=== PATIENT | female | born 1975 | race Caucasian/White ===

== ENCOUNTER 2016-10-10 20:23 | Emergency (ER) | payer OTHER ==
[~2016-10-10] VITALS: Ht 160 cm; Wt 76.0 kg
[~2016-10-10 20:23] MED LIST: LISI-586 PO; SUCR1TAB PO; ZANT150T2 PO; ZOFR4TAB3 SL
[2016-10-10 20:30] VITALS: BP 194/109; PULSE 77; RESP 18; TEMP 99; O2SAT 100
[2016-10-10] MEDS ORDERED: SODIUM CHLOR 0.9% 1000 ML INJ 1,000 ML IV SCH (21:35)
[2016-10-10] MEDS ORDERED: MORPHINE SULFATE 4 MG/ML INJ IV PUSH ONE ×2 (21:45→23:45)
[2016-10-10] MEDS ORDERED: ALUMINUM/MAGNESIUM/SIMETH 30 ML CUP PO ONE (21:45)
[2016-10-10] MEDS ORDERED: PANTOPRAZOLE SODIUM 40 MG VIAL IVP ONE (21:45)
[2016-10-10] MEDS ORDERED: ONDANSETRON HCL 4 MG/2 ML VIAL IVP ONE (21:45)
[2016-10-10] MEDS ORDERED: LIDOCAINE VISCOUS 2% SOLN 15 ML UDC PO ONE (21:45)
[2016-10-10 22:08] LABS: AUTOMATED NEUTROPHIL # 3.4 TH/MM3 (1.8-7.7); BASOPHIL % 0.5 % (0.0-2.0); EOSINOPHIL % 0.7 % (0.0-4.0); HEMATOCRIT 33.4 % (35.0-46.0); LYMPH % 16.1 % (9.0-44.0); LYMPHOCYTE # 0.7 TH/MM3 (1.0-4.8); MEAN CELL VOLUME 72.6 FL (80.0-100.0); MEAN CORPUSCULAR HGB CONC 31.8 % (32.0-36.0); NEUT % 71.7 % (16.0-70.0); PLATELET COUNT 375 TH/MM3 (150-450); RED CELL DISTRIBUTION WIDTH 19.5 % (11.6-17.2); WHITE BLOOD COUNT 4.6 TH/MM3 (4.0-11.0)
[2016-10-10 22:10] LABS: GLUCOSE,URINE NEG (NEG); KETONE, URINE 40 mg/dL (NEG); NITRITE,URINE NEG (NEG)
[2016-10-10] MEDS: SODIUM CHLORIDE 0.9% FLUSH 10 ML FLUSH IV FLUSH PRN ×2 (22:11→23:48)
[2016-10-10 22:19] LABS: HEMO FLAGS AUTO DIFF
[2016-10-10 22:21] LABS: BICARBONATE 26.9 MEQ/L (21.0-32.0)
[2016-10-10 22:24] LABS: APTT (PATIENT) 25.7 SEC (24.3-30.1); INTERNATIONAL NORMALIZED RATIO 0.9 RATIO; PROTHROMBIN TIME - PATIENT 10.4 SEC (9.8-11.6)
[2016-10-10 22:35] VITALS: BP 148/95; PULSE 72; RESP 20; O2SAT 98
[2016-10-10 22:38] LABS: BLOOD, URINE MOD (NEG)
[2016-10-10 22:39] LABS: URINE COLOR YELLOW (YELLW/STRAW)
[2016-10-10 22:40] LABS: WBC, URINE 0-2 /hpf (0-5)
[2016-10-10 22:41] LABS: COMMENT (UR) CULT NOT INDICATED; CULTURE IF INDICATED CULT NOT INDICATED; RBC, URINE 0-3 /hpf (0-3); SQUAMOUS EPITHELIAL CELL URINE 0-5 /hpf (0-5)
[2016-10-10] MEDS ORDERED: ACETAMINOPHEN/HYDROcodone 325 MG/5 MG TAB PO ONE (22:45)
[2016-10-10 22:52] LABS: OVALOCYTES 1+ (NORMAL); TARGET CELLS 1+ (NORMAL)
[2016-10-10 22:53] LABS: KERATOCYTES 1+ (NORMAL); SCAN/DIFF AUTO DIFF CONFIRMED
--- NOTE | 2016-10-10 23:48 | PD ---
HPI Chief Complaint: GI Complaint Time Seen by Provider: 21:24 Travel History International Travel<30 days: No Contact w/Intl Traveler<30days: No Traveled to known affect area: No History of Present Illness HPI Patient is a 41 year old female with history of gastric bypass surgery and severe gastritis, who comes in complaining of gastritis pain. She has been here multiple times for the same thing and says she has been following with GI who has not been able to find anything wrong. She takes Zantac, Zofran, Lortab , and now Xanax, without relief of her symptoms. She says the symptoms have been going on since Monday. She says that her symptoms are similar to past symptoms. She says she is currently on an antibiotic for a UTI ( she does not know which one). PFSH Past Medical History Anxiety: Yes Depression: Yes Cancer: No Cardiovascular Problems: Yes (BP) Diabetes: No Diminished Hearing: No Gastrointestinal Disorders: Yes (GASTRITIS) GERD: Yes Glaucoma: No Hepatitis: No Hiatal Hernia: No Hypertension: Yes Musculoskeletal: Yes (SCIATICA) Respiratory: No Immunizations Current: Yes Thyroid Disease: No PNEUMOCCOCAL Vaccine (Year): 2 ?: Not : 2 Para: 2 Tubal Ligation: Yes Past Surgical History Abdominal Surgery: Yes (GASTRIC BYPASS 2009) Cardiac Surgery: No Endocrine Surgery: No Gynecologic Surgery: Yes Neurologic Surgery: No Pacemaker: No Thoracic Surgery: No Tonsillectomy: Yes Other Surgery: Yes (CARPAL TUNNEL REPAIR, bilateral) Social History Alcohol Use: Yes (DAILY) Tobacco Use: No (QUIT 2005) Substance Use: No Allergies-Medications (Allergen,Severity, Reaction): Coded Allergies: No Known Allergies (Verified , 10/10/16) Reported Meds & Prescriptions Reported Meds & Active Scripts Active Sucralfate 1 Gm Tab 1 Gm PO QID 30 Days Zofran ODT (Ondansetron HCl) 4 Mg Tab 4 Mg SL Q6H PRN FOR NAUSEA/VOMITING Reported Zantac (Ranitidine HCl) 150 Mg Tab 150 Mg PO BID Zestoretic 20/12.5 (Lisinopril/Hctz 20 mg/12.5 mg) 20 Mg/12.5 Mg Tab 1 Tab PO DAILY Review of Systems Except as stated in HPI: all other systems reviewed are Neg General / Constitutional: No: Fever, Chills HENT: No: Headaches Cardiovascular: No: Chest Pain or Discomfort Respiratory: No: Shortness of Breath Gastrointestinal: Positive: Nausea, Vomiting, Abdominal Pain Genitourinary: Positive: Dysuria Musculoskeletal: No: Edema, Pain Skin: No Rash, No Change in Pigmentation Physical Exam Narrative GENERAL: Awake and alert, in mild distress due to pain. SKIN: Focused skin assessment warm/dry. HEAD: Atraumatic. Normocephalic. EYES: Pupils equal and round. No scleral icterus. ENT: Mucous membranes pink and moist. NECK: Trachea midline. No JVD. CARDIOVASCULAR: Regular rate and rhythm. No murmur appreciated. RESPIRATORY: No accessory muscle use. Clear to auscultation. Breath sounds equal bilaterally. GASTROINTESTINAL: Abdomen soft, nondistended. tender to palpation of epigastric area, no rebound or guarding. MUSCULOSKELETAL: No obvious deformities. No clubbing. No cyanosis. No edema. NEUROLOGICAL: Awake and alert. No obvious cranial nerve deficits. Motor grossly within normal limits. Normal speech. PSYCHIATRIC: Appropriate mood and affect; insight and judgment normal. Data Data Last Documented VS Vital Signs Date Time Temp Pulse Resp B/P Pulse Ox O2 Delivery O2 Flow Rate FiO2 10/11/16 00:31 69 18 159/92 98 Room Air 10/10/16 20:30 99.0 Orders Basic Metabolic Panel (Bmp) (10/10/16 21:35) Complete Blood Count With Diff (10/10/16 21:35) Lipase (10/10/16 21:35) Prothrombin Time / Inr (Pt) (10/10/16 21:35) Act Partial Throm Time (Ptt) (10/10/16 21:35) Urinalysis - C+S If Indicated (10/10/16 21:35) Ua Includes Microscopic (10/10/16 21:35) Iv Access Insert/Monitor (10/10/16 21:35) Ecg Monitoring (10/10/16 21:35) Oximetry (10/10/16 21:35) Morphine Inj (Morphine Inj) (10/10/16 21:45) Ondansetron Inj (Zofran Inj) (10/10/16 21:45) Pantoprazole Inj (Protonix Inj) (10/10/16 21:45) Sodium Chlor 0.9% 1000 Ml Inj (Ns 1000 M (10/10/16 21:35) Sodium Chloride 0.9% Flush (Ns Flush) (10/10/16 21:45) Al-Mag Hy-Si 40-40-4 Mg/Ml Liq (Mag-Al P (10/10/16 21:45) Lidocaine 2% Viscous (Xylocaine 2% Visco (10/10/16 21:45) Ed Urine Pregnancytest Poc (10/10/16 21:35) Acetamin-Hydrocod 325-5 Mg ([place] 5-325 (10/10/16 22:45) Ct Abd/Pel W Iv Contrast(Rout) (10/10/16 ) Morphine Inj (Morphine Inj) (10/10/16 23:45) Iohexol 350 Inj (Omnipaque 350 Inj) (10/10/16 23:55) Labs Laboratory Tests Test 10/10/16 21:57 White Blood Count 4.6 TH/MM3 Red Blood Count 4.60 MIL/MM3 Hemoglobin 10.6 GM/DL Hematocrit 33.4 % Mean Corpuscular Volume 72.6 FL Mean Corpuscular Hemoglobin 23.0 PG Mean Corpuscular Hemoglobin 31.8 % Concent Red Cell Distribution Width 19.5 % Platelet Count 375 TH/MM3 Mean Platelet Volume 7.1 FL Neutrophils (%) (Auto) 71.7 % Lymphocytes (%) (Auto) 16.1 % Monocytes (%) (Auto) 11.0 % Eosinophils (%) (Auto) 0.7 % Basophils (%) (Auto) 0.5 % Neutrophils # (Auto) 3.4 TH/MM3 Lymphocytes # (Auto) 0.7 TH/MM3 Monocytes # (Auto) 0.5 TH/MM3 Eosinophils # (Auto) 0.0 TH/MM3 Basophils # (Auto) 0.0 TH/MM3 CBC Comment AUTO DIFF Differential Comment AUTO DIFF CONFIRMED Target Cells 1+ Ovalocytes 1+ Keratocytes 1+ Prothrombin Time 10.4 SEC Prothromb Time International 0.9 RATIO Ratio Activated Partial 25.7 SEC Thromboplast Time Urine Color YELLOW Urine Turbidity CLEAR Urine pH 6.0 Urine Specific [place] 1.029 Urine Protein 30 mg/dL Urine Glucose (UA) NEG mg/dL Urine Ketones 40 mg/dL Urine Occult Blood MOD Urine Nitrite NEG Urine Bilirubin NEG Urine Leukocyte Esterase NEG Urine RBC 0-3 /hpf Urine WBC 0-2 /hpf Urine Squamous Epithelial 0-5 /hpf Cells Microscopic Urinalysis Comment CULT NOT INDICATED Sodium Level 136 MEQ/L Potassium Level 3.0 MEQ/L Chloride Level 98 MEQ/L Carbon Dioxide Level 26.9 MEQ/L Anion Gap 11 MEQ/L Blood Urea Nitrogen 9 MG/DL Creatinine 0.79 MG/DL Estimat Glomerular Filtration 79 ML/MIN Rate Random Glucose 117 MG/DL Calcium Level 9.5 MG/DL Lipase 210 U/L MDM Medical Decision Making Medical Screen Exam Complete: Yes Emergency Medical Condition: Yes Medical Record Reviewed: Yes Differential Diagnosis gastritis vs obstruction vs pancreatitis Narrative Course Patient is a 40-year-old female with extensive history of gastritis, who comes in complaining of gastritis pain. Exam shows epigastric tenderness. IV established, labs sent. Labs show no acute abnormalities. Given IV fluids, GI cocktail, morphine. Patient states she is still having a lot of pain. Given second dose of morphine. CT abdomen and pelvis performed. CT shows no acute abnormalities. Patient reports she is feeling better after the second dose of morphine. Will be discharged home. Advised follow-up with her doctors. Advised to return to the ED as needed for any worsening symptoms. Diagnosis Primary Impression: Gastritis Qualified Code: K29.00 - Acute gastritis without hemorrhage, unspecified gastritis type Patient Instructions: Gastritis (ED), General Instructions Additional Instructions: Follow up with your doctors. Return to the ED as needed for any worsening symptoms. Disposition: 01 DISCHARGE HOME Condition: Stable Myrna Hernandes MD Oct 10, 2016 23:48
[2016-10-10] MEDS ORDERED: IOHEXOL 350 MG/ML 10 ML VIAL (for RAD DIAG) IV ONE (23:55)
--- NOTE | 2016-10-11 00:23 | RADHPO ---
EXAM DATE/TIME: 10/10/2016 23:52 [facility] COMPARISON: CT ABDOMEN & PELVIS W CONTRAST, June 17, 2015, 3:51. INDICATIONS : Right lower quadrant pain. IV CONTRAST: 75 cc Omnipaque 350 (iohexol) IV ORAL CONTRAST: No oral contrast ingested. RADIATION DOSE: 10.50 CTDIvol (mGy) MEDICAL HISTORY : Gastroesophageal reflux disease. Hypertension. SURGICAL HISTORY : Gastric bypass. Tubal ligation. ENCOUNTER: Initial ACUITY: 1 day PAIN SCALE: 7/10 LOCATION: Right lower quadrant TECHNIQUE: Volumetric scanning of the abdomen and pelvis was performed. Using automated exposure control and ad justment of the mA and/or kV according to patient size, radiation dose was kept as low as reasonably achievable to obtain optimal diagnostic quality images. FINDINGS: LOWER LUNGS: The visualized lower lungs are clear. LIVER: Homogeneous density without lesion. There is no dilation of the biliary tree. There has been interva l cholecystectomy. SPLEEN: Normal size without lesion. PANCREAS: Within normal limits. KIDNEYS: Normal in size and shape. There is no mass, stone or hydronephrosis. ADRENAL GLANDS: Within normal limits. VASCULAR: There is no aortic aneurysm. BOWEL/MESENTERY: Post gastric bypass surgery. The stomach, small bowel, and colon demonstrate no acute abnormality. T here is no free intraperitoneal air or fluid. ABDOMINAL WALL: Within normal limits. RETROPERITONEUM: There is no lymphadenopathy. BLADDER: No wall thickening or mass. REPRODUCTIVE: Within normal limits. INGUINAL: There is no lymphadenopathy or hernia. MUSCULOSKELETAL: Within normal limits for patient age. CONCLUSION: 1. No acute abnormality. 2. Interval cholecystectomy. 3. Prior gastric bypass. Naif Yadav Jr., MD on October 11, 2016 at 0:17 Board Certified Radiologist. This report was verified electronically.
[2016-10-11 00:31] VITALS: BP 159/92; PULSE 69; RESP 18; O2SAT 98
[2016-10-11 00:57] VITALS: BP 122/74; PULSE 69; RESP 16; O2SAT 98
== END 2016-10-11 01:05 | disposition home or self-care (01) ==
LOC: PHED 20:23
DX: K29.00 Acute gastritis without bleeding (principal); R30.0 Dysuria; F41.9 Anxiety disorder, unspecified; F32.9 Major depressive disorder, single episode, unspecified; K21.9 Gastro-esophageal reflux disease without esophagitis; I10 Essential (primary) hypertension; Z87.891 Personal history of nicotine dependence
CPT/HCPCS: 74177; 80048; 81001; 83690; 84703; 85025; 85610; 85730; 96361; 96374; 96375; 96376; 99284; C9113; J2270; J2405; J7030; Q9967

== ENCOUNTER 2016-11-29 23:39 | Emergency (ER) | payer OTHER ==
[~2016-11-29] VITALS: Ht 160 cm; Wt 71.2 kg
[2016-11-29 23:42] VITALS: BP 167/101; PULSE 75; RESP 16; TEMP 97.9; O2SAT 99
[2016-11-29 23:55] VITALS: BP 167/101; PULSE 75; RESP 18; TEMP 97.9; O2SAT 99
[2016-11-30] MEDS ORDERED: SODIUM CHLOR 0.9% 1000 ML INJ 1,000 ML IV SCH (00:03)
[2016-11-30] MEDS ORDERED: ZANT150T2 PO (00:09)
[2016-11-30] MEDS ORDERED: HYDR-4107 PO (00:09)
[2016-11-30] MEDS ORDERED: HYDR-3580 PO (00:09)
[2016-11-30] MEDS ORDERED: BUPR75TA PO (00:09)
[2016-11-30] MEDS ORDERED: LISI20TA PO (00:09)
[2016-11-30] MEDS ORDERED: RANI150C PO (00:09)
[2016-11-30] MEDS ORDERED: MORPHINE SULFATE 4 MG/ML INJ IV PUSH ONE (00:15)
[2016-11-30] MEDS ORDERED: ONDANSETRON HCL 4 MG/2 ML VIAL IVP ONE (00:15)
[2016-11-30] MEDS ORDERED: SODIUM CHLORIDE 0.9% FLUSH 10 ML FLUSH IV FLUSH PRN (00:15)
--- NOTE | 2016-11-30 00:20 | PD ---
HPI Chief Complaint: Abdominal Pain Time Seen by Provider: 23:55 Travel History International Travel<30 days: No Contact w/Intl Traveler<30days: No Traveled to known affect area: No History of Present Illness HPI 41yo F with PMH of chronic back pain on hydrocodone from pain management, chronic abdominal pain presents to the ED with c/o abdominal pain. Pt states it is now right sided, upper and lower and radiates to right back. +NBNB vomiting. States this episode has been going on for 2 weeks but worst today. Denies any fever, trauma, focal weakness or numbness, chest pain, sob, dysuria, hematuria, vaginal discharge. Pt is on her menstrual period. Pt has seen GI and had endoscopy 2 months ago that was normal. States she has scheduled colonoscopy. Pt was here for similar abdominal pain last month. States she has had this pain for 2 years and it flares up every so often. PSH include gastric bypass and cholecystectomy. PFSH Past Medical History Anxiety: Yes Depression: Yes Cancer: No Cardiovascular Problems: Yes Diabetes: No Diminished Hearing: No Gastrointestinal Disorders: Yes (GASTRITIS) GERD: Yes Glaucoma: No Hepatitis: No Hiatal Hernia: No Hypertension: Yes Musculoskeletal: Yes (SCIATICA) Respiratory: No Immunizations Current: Yes Thyroid Disease: No Tetanus Vaccination: < 5 Years Influenza Vaccination: Yes PNEUMOCCOCAL Vaccine (Year): 2 ?: Not LMP: NOW : 2 Para: 2 Tubal Ligation: Yes Past Surgical History Abdominal Surgery: Yes (GASTRIC BYPASS 2009) Cardiac Surgery: No Endocrine Surgery: No Gynecologic Surgery: Yes Neurologic Surgery: No Pacemaker: No Thoracic Surgery: No Tonsillectomy: Yes Other Surgery: Yes (CARPAL TUNNEL REPAIR, bilateral) Social History Alcohol Use: Yes (DAILY) Tobacco Use: No (QUIT 2005) Substance Use: No Allergies-Medications (Allergen,Severity, Reaction): Coded Allergies: No Known Allergies (Verified , 10/10/16) Reported Meds & Prescriptions Reported Meds & Active Scripts Active Reported Bupropion HCl 75 Mg Tab 75 Mg PO BID Zantac (Ranitidine HCl) 150 Mg Tab 150 Mg PO BID Ranitidine (Ranitidine HCl) 150 Mg Cap 150 Mg PO BID Hydrocodone-Acetaminophen 7.5-325 mg Tab 1 Tab PO Q4H PRN Hydrocodone-Acetaminophen 5-300 Mg Tab 1 Tab PO Q4H PRN Lisinopril-Hctz 20-12.5 Mg Tab 1 Tab PO DAILY Review of Systems Except as stated in HPI: all other systems reviewed are Neg Physical Exam Narrative GENERAL: 41yo F in moderate distress. SKIN: Focused skin assessment warm/dry. HEAD: Atraumatic. Normocephalic. EYES: Pupils equal and round. No scleral icterus. No injection or drainage. ENT: No nasal bleeding or discharge. Mucous membranes pink and moist. NECK: Trachea midline. No JVD. CARDIOVASCULAR: Regular rate and rhythm. No murmur appreciated. RESPIRATORY: No accessory muscle use. Clear to auscultation. Breath sounds equal bilaterally. GASTROINTESTINAL: Abdomen soft, +TTP RLQ, RUQ. No rebound tenderness or guarding. Nondistended. BACK: No midline ttp. Right CVA tenderness. MUSCULOSKELETAL: No obvious deformities. No clubbing. No cyanosis. No edema. NEUROLOGICAL: Awake and alert. No obvious cranial nerve deficits. Motor grossly within normal limits. Normal speech. PSYCHIATRIC: Appropriate mood and affect; insight and judgment normal. Data Data Last Documented VS Vital Signs Date Time Temp Pulse Resp B/P Pulse Ox O2 Delivery O2 Flow Rate FiO2 11/30/16 01:57 77 18 176/97 100 Room Air 11/29/16 23:55 97.9 Orders Complete Blood Count With Diff (11/30/16 00:03) Comprehensive Metabolic Panel (11/30/16 00:03) Lipase (11/30/16 00:03) Prothrombin Time / Inr (Pt) (11/30/16 00:03) Act Partial Throm Time (Ptt) (11/30/16 00:03) Urinalysis - C+S If Indicated (11/30/16 00:03) Ct Abd/Pel W Iv Contrast(Rout) (11/30/16 00:03) Iv Access Insert/Monitor (11/30/16 00:03) Ecg Monitoring (11/30/16 00:03) Morphine Inj (Morphine Inj) (11/30/16 00:15) Ondansetron Inj (Zofran Inj) (11/30/16 00:15) Sodium Chlor 0.9% 1000 Ml Inj (Ns 1000 M (11/30/16 00:03) Sodium Chloride 0.9% Flush (Ns Flush) (11/30/16 00:15) Electrocardiogram (11/30/16 00:03) Ed Urine Pregnancytest Poc (11/30/16 00:03) Iohexol 350 Inj (Omnipaque 350 Inj) (11/30/16 01:55) Labs Laboratory Tests Test 11/30/16 11/30/16 00:40 01:05 White Blood Count 7.2 TH/MM3 Red Blood Count 4.87 MIL/MM3 Hemoglobin 10.7 GM/DL Hematocrit 34.9 % Mean Corpuscular Volume 71.7 FL Mean Corpuscular Hemoglobin 21.9 PG Mean Corpuscular Hemoglobin 30.5 % Concent Red Cell Distribution Width 18.4 % Platelet Count 440 TH/MM3 Mean Platelet Volume 7.1 FL Neutrophils (%) (Auto) 73.8 % Lymphocytes (%) (Auto) 15.6 % Monocytes (%) (Auto) 8.9 % Eosinophils (%) (Auto) 1.1 % Basophils (%) (Auto) 0.6 % Neutrophils # (Auto) 5.3 TH/MM3 Lymphocytes # (Auto) 1.1 TH/MM3 Monocytes # (Auto) 0.6 TH/MM3 Eosinophils # (Auto) 0.1 TH/MM3 Basophils # (Auto) 0.0 TH/MM3 CBC Comment AUTO DIFF Differential Comment AUTO DIFF CONFIRMED Platelet Estimate NORMAL Platelet Morphology Comment NORMAL Red Cell Morphology Comment NORMAL Prothrombin Time 10.4 SEC Prothromb Time International 0.9 RATIO Ratio Activated Partial 25.1 SEC Thromboplast Time Sodium Level 137 MEQ/L Potassium Level 3.4 MEQ/L Chloride Level 102 MEQ/L Carbon Dioxide Level 24.3 MEQ/L Anion Gap 11 MEQ/L Blood Urea Nitrogen 8 MG/DL Creatinine 0.74 MG/DL Estimat Glomerular Filtration 86 ML/MIN Rate Random Glucose 123 MG/DL Calcium Level 9.5 MG/DL Total Bilirubin 0.8 MG/DL Aspartate Amino Transf 17 U/L (AST/SGOT) Alanine Aminotransferase 22 U/L (ALT/SGPT) Alkaline Phosphatase 57 U/L Total Protein 7.9 GM/DL Albumin 4.0 GM/DL Lipase 145 U/L Urine Color QUINTIN Urine Turbidity CLEAR Urine pH 5.5 Urine Specific [place] 1.028 Urine Protein TRACE mg/dL Urine Glucose (UA) NEG mg/dL Urine Ketones TRACE mg/dL Urine Occult Blood TRACE Urine Nitrite NEG Urine Bilirubin NEG Urine Leukocyte Esterase NEG Urine RBC 0-3 /hpf Urine Squamous Epithelial 0-5 /hpf Cells Urine Bacteria OCC /hpf Urine Mucus MANY /lpf Microscopic Urinalysis Comment CULT NOT INDICATED MDM Medical Decision Making Medical Screen Exam Complete: Yes Emergency Medical Condition: Yes Interpretation(s) EKG: NSR 69bpm. Normal axis. NO ST segment elevation or depression. Differential Diagnosis Colitis vs. IBS vs. appendicitis vs. pancreatitis Narrative Course 41yo F with chronic abdominal pain here stating she has worsening pain. Labs reviewed, no leukocytosis. H/H low but at baseline. K: 3.4, pt is tolerating PO now. UA showed no leukocyte or nitrite. CT abd/pelvis showed stable chronic and benign changes. Pt given NS IVF, morphine 4 mg, zofran 4mg. Pt reevaluated at bedside and tolerating PO. Pain has improved. Instructed pt to follow up with GI as outpatient. Pt already has hydrocodone from pain management. Diagnosis Primary Impression: Abdominal pain Qualified Code: R10.9 - Abdominal pain, unspecified location Patient Instructions: General Instructions Departure Forms: Tests/Procedures Additional Instructions: Please follow up with your GI physician as an outpatient. Return to the ED if symptoms worsen. Med/Other Pt SpecificInfo: Prescription(s) given Scripts Ondansetron Odt (Zofran Odt)4 Mg Tab4 Mg SL Q12HR PRN (Nausea/Vomiting) #6 TAB Ref 0 Prov:Asmita Bains DO 11/30/16 Disposition: 01 DISCHARGE HOME Condition: Stable Asmita Bains DO November 30, 2016 00:20
[2016-11-30 00:49] LABS: AUTOMATED NEUTROPHIL # 5.3 TH/MM3 (1.8-7.7); BASOPHIL % 0.6 % (0.0-2.0); EOSINOPHIL # 0.1 TH/MM3 (0-0.4); EOSINOPHIL % 1.1 % (0.0-4.0); HEMATOCRIT 34.9 % (35.0-46.0); LYMPH % 15.6 % (9.0-44.0); LYMPHOCYTE # 1.1 TH/MM3 (1.0-4.8); MEAN CELL VOLUME 71.7 FL (80.0-100.0); MEAN CORPUSCULAR HEMOGLOBIN 21.9 PG (27.0-34.0); MEAN CORPUSCULAR HGB CONC 30.5 % (32.0-36.0); MONO % 8.9 % (0.0-8.0); NEUT % 73.8 % (16.0-70.0); PLATELET COUNT 440 TH/MM3 (150-450); RED BLOOD COUNT 4.87 MIL/MM3 (4.00-5.30); RED CELL DISTRIBUTION WIDTH 18.4 % (11.6-17.2); WHITE BLOOD COUNT 7.2 TH/MM3 (4.0-11.0)
[2016-11-30 00:56] LABS: HEMO FLAGS AUTO DIFF
[2016-11-30 00:57] LABS: CHLORIDE 102 MEQ/L (98-107); POTASSIUM 3.4 MEQ/L (3.5-5.1); SODIUM (NA) 137 MEQ/L (136-145)
[2016-11-30 00:58] VITALS: BP 176/100; PULSE 69; RESP 18; O2SAT 99
[2016-11-30 01:01] LABS: ANION GAP 11 MEQ/L (5-15); BICARBONATE 24.3 MEQ/L (21.0-32.0)
[2016-11-30 01:02] LABS: BLOOD UREA NITROGEN 8 MG/DL (7-18)
[2016-11-30 01:03] LABS: APTT (PATIENT) 25.1 SEC (24.3-30.1); INTERNATIONAL NORMALIZED RATIO 0.9 RATIO; PROTHROMBIN TIME - PATIENT 10.4 SEC (9.8-11.6)
[2016-11-30 01:04] LABS: ALT (GPT) 22 U/L (10-53); AST (GOT) 17 U/L (15-37); GLOMERULAR FILTRATION RATE 86 ML/MIN (>89)
[2016-11-30 01:06] LABS: TOTAL BILIRUBIN ADULT 0.8 MG/DL (0.2-1.0)
[2016-11-30 01:07] LABS: ALKALINE PHOSPHATASE 57 U/L (45-117)
[2016-11-30 01:11] LABS: BLOOD, URINE TRACE (NEG); GLUCOSE,URINE NEG (NEG); KETONE, URINE TRACE mg/dL (NEG); NITRITE,URINE NEG (NEG); PH, URINE 5.5 (5.0-8.5)
[2016-11-30 01:21] LABS: PLATELET ESTIMATE SMEAR NORMAL (NORMAL); PLATELET MORPHOLOGY NORMAL (NORMAL); SCAN/DIFF AUTO DIFF CONFIRMED
[2016-11-30 01:23] LABS: MUCUS URINE MANY /lpf (OCC); URINE COLOR AMBER (YELLW/STRAW)
[2016-11-30 01:24] LABS: SQUAMOUS EPITHELIAL CELL URINE 0-5 /hpf (0-5)
[2016-11-30 01:25] LABS: BACTERIA, URINE OCC /hpf; RBC, URINE 0-3 /hpf (0-3)
[2016-11-30 01:26] LABS: COMMENT (UR) CULT NOT INDICATED; CULTURE IF INDICATED CULT NOT INDICATED
[2016-11-30] MEDS ORDERED: IOHEXOL 350 MG/ML 10 ML VIAL (for RAD DIAG) IV ONE (01:55)
[2016-11-30 01:57] VITALS: BP 176/97; PULSE 77; RESP 18; O2SAT 100
--- NOTE | 2016-11-30 01:59 | RADHPO ---
EXAM DATE/TIME: 11/30/2016 01:26 [facility] COMPARISON: CT ABDOMEN & PELVIS W CONTRAST, October 10, 2016, 23:52. INDICATIONS : Right abdominal pain for one day. IV CONTRAST: 100 cc Omnipaque 350 (iohexol) IV ORAL CONTRAST: No oral contrast ingested. RADIATION DOSE: 8.41 CTDIvol (mGy) MEDICAL HISTORY : Hypertension. SURGICAL HISTORY : Gastric bypass. Tubal ligation. ENCOUNTER: Initial ACUITY: 1 day PAIN SCALE: 8/10 LOCATION: Right abdominal. TECHNIQUE: Volumetric scanning of the abdomen and pelvis was performed. Using automated exposure control and adjustment of the mA and/or kV according to patient size, radiation dose was kept as low as reasonably achievable to obtain optimal diagnostic quality images. FINDINGS: CT Abdomen: The liver, spleen, pancreas, kidneys, adrenals are unremarkable. There is no evidence for any appreciable pathological adenopathy, free fluid, or bowel obstruction. There is old fracture of right L1 transverse process. There is evidence for prior gastric bypass. There is evidence for prior cholecystectomy. CT pelvis: There is no evidence for mass, abscess formation, or any significant adenopathy within the pelvis. Tampon is in place. CONCLUSION: Stable chronic and benign changes. Cindy Jensen MD on November 30, 2016 at 1:54 Board Certified Radiologist. This report was verified electronically.
[2016-11-30] MEDS ORDERED: ZOFR4TAB3 SL (02:23)
[2016-11-30] MEDS ORDERED: PANTOPRAZOLE SODIUM 40 MG VIAL IV PUSH ONE (02:30)
--- NOTE | 2016-11-30 19:32 | EKG ---
Date Performed: 11/30/2016 Time Performed: 00:19:52 PTAGE: 41 years EKG: Sinus rhythm . Normal ECG PREVIOUS TRACING : 12/14/2015 13.26 Compared to prior tracing no significant change DOCTOR: Tremaine Pennington Interpretating Date/Time 11/30/2016 19:30:51
== END 2016-11-30 02:39 | disposition home or self-care (01) ==
LOC: PHED 23:39
DX: R10.31 Right lower quadrant pain (principal); R10.11 Right upper quadrant pain; R11.10 Vomiting, unspecified; F41.9 Anxiety disorder, unspecified; F32.9 Major depressive disorder, single episode, unspecified; K21.9 Gastro-esophageal reflux disease without esophagitis; I10 Essential (primary) hypertension; Z87.891 Personal history of nicotine dependence
CPT/HCPCS: 74177; 80053; 81001; 83690; 84703; 85025; 85610; 85730; 93005; 96361; 96374; 96375; 99285; J2270; J2405; J7030; Q9967

== ENCOUNTER 2017-05-15 20:43 | Emergency (ER) | payer OTHER ==
[~2017-05-15] VITALS: Ht 160 cm; Wt 73.0 kg
[~2017-05-15 20:43] MED LIST changes: +BUPR75TA PO; +HYDR-3580 PO; +HYDR-4107 PO; -LISI-586 PO; +LISI20TA PO; +RANI150C PO; -SUCR1TAB PO
[2017-05-15 21:09] VITALS: BP 133/68; PULSE 63; RESP 18; TEMP 98.6; O2SAT 100
[2017-05-15] MEDS ORDERED: IBUP-1129 PO (21:27)
--- NOTE | 2017-05-15 21:38 | PD ---
HPI Chief Complaint: Injury Time Seen by Provider: 21:21 Travel History International Travel<30 days: No Contact w/Intl Traveler<30days: No Traveled to known affect area: No History of Present Illness HPI The patient is a 42-year-old female who presents to the emergency department for a tissue avulsion of the second digit right hand. The patient was slicing food earlier today when she shaved the distal aspect of the second digit, right hand off. Initially blood, now is hypersensitive. The patient cannot recall her last tetanus shot. She does note the bleeding resolved prior to arrival. She is right-hand dominant. The tissue avulsion is distal to the nail. Symptoms are mild to moderate, exacerbated after she accidentally avulsed the distal aspect of the second digit right hand off while slicing food. PFSH Past Medical History Anxiety: Yes Depression: Yes Cancer: No Cardiovascular Problems: Yes Diabetes: No Diminished Hearing: No Gastrointestinal Disorders: Yes (GASTRITIS) GERD: Yes Glaucoma: No Hepatitis: No Hiatal Hernia: No Hypertension: Yes Musculoskeletal: Yes (SCIATICA) Respiratory: No Immunizations Current: Yes Thyroid Disease: No Tetanus Vaccination: Unknown Influenza Vaccination: No PNEUMOCCOCAL Vaccine (Year): 2 ?: Not : 2 Para: 2 Tubal Ligation: Yes Past Surgical History Abdominal Surgery: Yes (GASTRIC BYPASS 2009) Cardiac Surgery: No Endocrine Surgery: No Gynecologic Surgery: Yes Neurologic Surgery: No Pacemaker: No Thoracic Surgery: No Tonsillectomy: Yes Other Surgery: Yes (CARPAL TUNNEL REPAIR, bilateral) Social History Alcohol Use: Yes (DAILY) Tobacco Use: No (QUIT 2005) Substance Use: No Allergies-Medications (Allergen,Severity, Reaction): Coded Allergies: No Known Allergies (Verified Adverse Reaction, Unknown, 05/15/17) Reported Meds & Prescriptions Reported Meds & Active Scripts Active Reported Motrin Ib (Ibuprofen) 200 Mg Tablet 800 Mg PO TID Ranitidine (Ranitidine HCl) 150 Mg Cap 150 Mg PO BID Lisinopril-Hctz 20-12.5 Mg Tab 1 Tab PO DAILY Review of Systems Musculoskeletal: Positive: Pain Skin: Positive Other (as noted in the history of present illness) Neurologic: Positive: Sensory Disturbance (hypersensitive over the distal aspect of the second digit right hand), No: Paresthesia Hematologic/Lymphatic: Positive: Other (patient states the bleeding has resolved) Physical Exam Narrative GENERAL: Awake, alert, pleasant 42-year-old female who appears her stated age and is in no acute respiratory distress. SKIN: Focused skin assessment warm/dry. Patient has a tissue avulsion is approximately 1 cm x 0.5 cm in diameter of the distal aspect of the second digit right hand distal to the nail. HEAD: Atraumatic. Normocephalic. EYES: Pupils equal and round. No scleral icterus. No injection or drainage. NECK: Trachea midline. No JVD. MUSCULOSKELETAL: 1 cm x 0.5 cm tissue avulsion of the distal aspect of the second digit right hand just distal to the nail. The patient's acrylic nail on that affected finger is missing. There is no active bleeding. Positive right radial pulse. She is able fully flex at the MCP, PIP, DIP. She is able to extend the digit completely. NEUROLOGICAL: Awake and alert. No obvious cranial nerve deficits. Motor grossly within normal limits. Normal speech. PSYCHIATRIC: Appropriate mood and affect; insight and judgment normal. Data Data Last Documented VS Vital Signs Date Time Temp Pulse Resp B/P (MAP) Pulse Ox O2 Delivery O2 Flow Rate FiO2 05/15/17 21:27 (89) 05/15/17 21:09 98.6 63 18 100 Orders Orders Wound Care (05/15/17 21:33) Splint Or Brace Apply/Monitor (05/15/17 21:33) Tetanus/Diphtheria Tox Adult (Tetanus/Di (05/15/17 21:45) MDM Medical Decision Making Medical Screen Exam Complete: Yes Emergency Medical Condition: Yes Medical Record Reviewed: Yes Differential Diagnosis Differential diagnosis includes tissue avulsion, laceration, abrasion, contusion. Narrative Course The patient's tetanus shot was updated. The patient had Polysporin and a dressing applied over the affected area. She will be placed in the distal finger splint to avoid continuous trauma to the distal aspect of the finger. She is advised to clean it twice a day with soap and water, apply Polysporin, fat padded dressing, and the splint as needed for comfort. Diagnosis Primary Impression: Soft tissue avulsion Patient Instructions: General Instructions Additional Instructions: Clean the area twice a day with soap and water. Polysporin with fat padded dressing and finger splint as needed. Follow-up with your primary physician. Return if symptoms worsen or progress. Disposition: 01 DISCHARGE HOME Condition: Stable Josef Zelaya MD May 15, 2017 21:38
[2017-05-15] MEDS ORDERED: TETANUS/DIPHTHERIA TOXOID ADULT 0.5 ML VIAL IM ONE (21:45)
== END 2017-05-15 21:40 | disposition home or self-care (01) ==
LOC: PHEFT 20:43
DX: S61.210A Laceration without foreign body of right index finger without damage to nail, initial encounter (principal); I10 Essential (primary) hypertension; Z23 Encounter for immunization; W45.8XXA Other foreign body or object entering through skin, initial encounter; Y93.G1 Activity, food preparation and clean up; Y92.9 Unspecified place or not applicable; Y99.9 Unspecified external cause status
CPT/HCPCS: 29130; 90471; 90714

== ENCOUNTER 2017-09-06 00:14 | Emergency (ER) | payer OTHER ==
[~2017-09-06] VITALS: Ht 160 cm; Wt 70.0 kg
[~2017-09-06 00:14] MED LIST changes: -BUPR75TA PO; -HYDR-3580 PO; -HYDR-4107 PO; +IBUP-1129 PO; -ZANT150T2 PO; -ZOFR4TAB3 SL
[2017-09-06 00:25] VITALS: BP 189/93; PULSE 83; RESP 18; TEMP 98.4; O2SAT 100
[2017-09-06 01:28] LABS: BILIRUBIN, URINE NEG (NEG); BLOOD, URINE NEG (NEG); GLUCOSE,URINE NEG (NEG); HEMATOCRIT 33.1 % (35.0-46.0); HEMOGLOBIN 10.4 GM/DL (11.6-15.3); KETONE, URINE NEG (NEG); MEAN CELL VOLUME 67.9 FL (80.0-100.0); MEAN CORPUSCULAR HEMOGLOBIN 21.3 PG (27.0-34.0); MEAN CORPUSCULAR HGB CONC 31.4 % (32.0-36.0); MEAN PLATELET VOLUME 6.4 FL (7.0-11.0); NITRITE,URINE NEG (NEG); PLATELET COUNT 491 TH/MM3 (150-450); RED BLOOD COUNT 4.87 MIL/MM3 (4.00-5.30); URINE LEUKOCYTE ESTERASE NEG (NEG); WHITE BLOOD COUNT 5.6 TH/MM3 (4.0-11.0)
[2017-09-06 01:32] LABS: URINE COLOR YELLOW (YELLW/STRAW)
[2017-09-06 01:33] LABS: MUCUS URINE FEW /lpf (OCC); SQUAMOUS EPITHELIAL CELL URINE 0-5 /hpf (0-5)
[2017-09-06 01:34] LABS: AMORPHOUS SEDIMENT, URINE SMALL
[2017-09-06 01:35] LABS: WBC, URINE 0-2 /hpf (0-5)
[2017-09-06 02:00] VITALS: O2SAT 98
[2017-09-06 02:04] LABS: ALBUMIN 4.2 GM/DL (3.4-5.0); ALKALINE PHOSPHATASE 80 U/L (45-117); ALT (GPT) 23 U/L (10-53); AST (GOT) 24 U/L (15-37); BICARBONATE 28.7 MEQ/L (21.0-32.0); BLOOD UREA NITROGEN 11 MG/DL (7-18); CALCIUM 9.3 MG/DL (8.5-10.1); CHLORIDE 95 MEQ/L (98-107); CREATININE 0.83 MG/DL (0.50-1.00); GLOMERULAR FILTRATION RATE 75 ML/MIN (>89); GLUCOSE,RANDOM 114 MG/DL (74-106); SODIUM (NA) 133 MEQ/L (136-145); TOTAL BILIRUBIN ADULT 0.9 MG/DL (0.2-1.0); TOTAL PROTEIN 8.7 GM/DL (6.4-8.2)
[2017-09-06 02:16] LABS: BANDS 2 % (0-6); BASOPHILS 1 % (0-2); LYMPHOCYTES 31 % (9-44); MONOCYTES 5 % (0-8); NEUTROPHIL # MANUAL DIFF 3.4 TH/MM3 (1.8-7.7); OVALOCYTES 1+ (NORMAL); POLYS (SEG NEUTROPHILS) 58 % (16-70)
--- NOTE | 2017-09-06 02:54 | PD ---
HPI Chief Complaint: GI Complaint Time Seen by Provider: 02:46 Travel History International Travel<30 days: No Contact w/Intl Traveler<30days: No Traveled to known affect area: No History of Present Illness HPI The patient is a 42-year-old female that complains of midline epigastric pain for 3 years. It is worse in the last few days. She is going to see a windows server support technician about this. She had a cholecystectomy thinking that this might get rid of the problem. She has had a gastric bypass. She does have nausea and does have vomiting. She takes ranitidine [id number] omeprazole. She does not take it all the time, she just took it for the last few days. She states she has anxiety and this makes her nausea worse and her pain worse. She wants something for anxiety. She has someone to drive her home. PFSH Past Medical History Anxiety: Yes Depression: Yes Cancer: No Cardiovascular Problems: Yes Diabetes: No Diminished Hearing: No Gastrointestinal Disorders: Yes (GASTRITIS) GERD: Yes Glaucoma: No Hepatitis: No Hiatal Hernia: No Hypertension: Yes Musculoskeletal: Yes (SCIATICA) Respiratory: No Immunizations Current: Yes Thyroid Disease: No PNEUMOCCOCAL Vaccine (Year): 2 ?: Not LMP: partial hysterectomy : 2 Para: 2 Tubal Ligation: Yes Past Surgical History Abdominal Surgery: Yes (GASTRIC BYPASS 2009) Cardiac Surgery: No Endocrine Surgery: No Gynecologic Surgery: Yes Neurologic Surgery: No Pacemaker: No Thoracic Surgery: No Tonsillectomy: Yes Other Surgery: Yes (CARPAL TUNNEL REPAIR, bilateral) Social History Alcohol Use: Yes (DAILY) Tobacco Use: No (QUIT 2005) Substance Use: No Allergies-Medications (Allergen,Severity, Reaction): Coded Allergies: No Known Allergies (Verified Adverse Reaction, Unknown, 05/15/17) Reported Meds & Prescriptions Reported Meds & Active Scripts Active Reported Motrin Ib (Ibuprofen) 200 Mg Tablet 800 Mg PO TID Ranitidine (Ranitidine HCl) 150 Mg Cap 150 Mg PO BID Lisinopril-Hctz 20-12.5 Mg Tab 1 Tab PO DAILY Review of Systems Except as stated in HPI: all other systems reviewed are Neg Physical Exam Narrative GENERAL: The patient appears mildly dehydrated, is alert and oriented 3 in moderate apparent distress with her midline epigastric discomfort. Her blood pressure is 189/93 but the rest of the vital signs are normal. SKIN: Focused skin assessment warm/dry. HEAD: Atraumatic. Normocephalic. EYES: Pupils equal and round. No scleral icterus. No injection or drainage. ENT: No nasal bleeding or discharge. Mucous membranes pink and moist. NECK: Trachea midline. No JVD. CARDIOVASCULAR: Regular rate and rhythm. No murmur appreciated. RESPIRATORY: No accessory muscle use. Clear to auscultation. Breath sounds equal bilaterally. GASTROINTESTINAL: Abdomen soft, with tenderness to direct palpation in the midline epigastrium, nondistended. Hepatic and splenic margins not palpable. No guarding or rebound is present. MUSCULOSKELETAL: No obvious deformities. No clubbing. No cyanosis. No edema. NEUROLOGICAL: Awake and alert. No obvious cranial nerve deficits. Motor grossly within normal limits. Normal speech. PSYCHIATRIC: Appropriate mood and affect; insight and judgment normal. Data Data Last Documented VS Vital Signs Date Time Temp Pulse Resp B/P (MAP) Pulse Ox O2 Delivery O2 Flow Rate FiO2 09/06/17 00:25 98.4 83 18 189/93 (125) 100 Orders Orders Complete Blood Count With Diff (09/06/17 00:44) Comprehensive Metabolic Panel (09/06/17 00:44) Urinalysis - C+S If Indicated (09/06/17 00:44) Iv Access Insert/Monitor (09/06/17 00:44) Oximetry (09/06/17 00:44) Lipase (09/06/17 00:44) Potassium Chloride (Kcl) (09/06/17 03:00) Ecg Monitoring (09/06/17 02:55) Ondansetron Inj (Zofran Inj) (09/06/17 03:00) Pantoprazole Inj (Protonix Inj) (09/06/17 03:00) Sodium Chlor 0.9% 1000 Ml Inj (Ns 1000 M (09/06/17 02:55) Sodium Chloride 0.9% Flush (Ns Flush) (09/06/17 03:00) Famotidine Inj (Pepcid Inj) (09/06/17 03:00) Al-Mag Hy-Si 40-40-4 Mg/Ml Liq (Mag-Al P (09/06/17 03:00) Lidocaine 2% Viscous (Xylocaine 2% Visco (09/06/17 03:00) Lorazepam Inj (Ativan Inj) (09/06/17 03:00) Morphine Inj (Morphine Inj) (09/06/17 03:45) Ondansetron Inj (Zofran Inj) (09/06/17 03:45) Labs Laboratory Tests Test 09/06/17 01:23 White Blood Count 5.6 TH/MM3 Red Blood Count 4.87 MIL/MM3 Hemoglobin 10.4 GM/DL Hematocrit 33.1 % Mean Corpuscular Volume 67.9 FL Mean Corpuscular Hemoglobin 21.3 PG Mean Corpuscular Hemoglobin Concent 31.4 % Red Cell Distribution Width 20.0 % Platelet Count 491 TH/MM3 Mean Platelet Volume 6.4 FL CBC Comment AUTO DIFF Differential Total Cells Counted 100 Neutrophils % (Manual) 58 % Band Neutrophils % 2 % Lymphocytes % 31 % Monocytes % 5 % Eosinophils % 3 % Basophils % 1 % Neutrophils # (Manual) 3.4 TH/MM3 Differential Comment FINAL DIFF MANUAL Platelet Estimate HIGH Platelet Morphology Comment NORMAL Ovalocytes 1+ Urine Color YELLOW Urine Turbidity SLIGHT Urine pH 6.0 Urine Specific [place] 1.019 Urine Protein NEG mg/dL Urine Glucose (UA) NEG mg/dL Urine Ketones NEG mg/dL Urine Occult Blood NEG Urine Nitrite NEG Urine Bilirubin NEG Urine Leukocyte Esterase NEG Urine WBC 0-2 /hpf Urine Squamous Epithelial Cells 0-5 /hpf Urine Amorphous Sediment SMALL Urine Mucus FEW /lpf Microscopic Urinalysis Comment CULT NOT INDICATED Blood Urea Nitrogen 11 MG/DL Creatinine 0.83 MG/DL Random Glucose 114 MG/DL Total Protein 8.7 GM/DL Albumin 4.2 GM/DL Calcium Level 9.3 MG/DL Alkaline Phosphatase 80 U/L Aspartate Amino Transf (AST/SGOT) 24 U/L Alanine Aminotransferase (ALT/SGPT) 23 U/L Total Bilirubin 0.9 MG/DL Sodium Level 133 MEQ/L Potassium Level 2.9 MEQ/L Chloride Level 95 MEQ/L Carbon Dioxide Level 28.7 MEQ/L Anion Gap 9 MEQ/L Estimat Glomerular Filtration Rate 75 ML/MIN Lipase 184 U/L [facility] Medical Decision Making Medical Screen Exam Complete: Yes Emergency Medical Condition: Yes Medical Record Reviewed: Yes Interpretation(s) The CBC is normal except for hemoglobin of 10.4 and hematocrit of 33.1 and low MCV, MCH and MCHC values. Platelet count is high at 491,000. The complete metabolic profile shows a potassium of 2.9, GFR of 75, total protein of 8.7 but is otherwise unremarkable. The lipase is normal. The urine is normal and cultures not indicated. Differential Diagnosis Gastritis, pancreatitis, colitis, anxiety related vomiting, gastroenteritis, dehydration, electrolyte disorder, ulcer pain Narrative Course It is now 0356 the patient feels much better and wants to go home. Her anxiety is relieved and her abdominal pain is gone and the slight amount of chest pain that she had is resolved. She does not want any pain medicine to go home, she thinks she will do well with some anxiety medicine and some nausea medicine. It is felt that the Xanax will help both her nausea and the anxiety. Plan: The patient will be given Xanax 0.5 mg #15 and Compazine #30. Diagnosis Primary Impression: Gastritis Additional Impressions: Anxiety Mild dehydration Additional Instructions: Do not drink alcohol or drive on the Compazine or the Xanax. Follow-up with your primary care physician next week. If you start vomiting again, you may need to return to emergency department. Hopefully he will take the nausea medicine regularly so that she did not start vomiting. Make sure you drink a lot of clear liquids to stay well-hydrated, Gatorade is ideal for this. Med/Other Pt SpecificInfo: Prescription(s) given Scripts Prochlorperazine Maleate (Prochlorperazine Maleate) 10 Mg Tab 10 MG PO Q6H Y for NAUSEA OR VOMITING, #30 TAB 0 Refills Prov: Jerry Block MD 09/06/17 Alprazolam (Xanax) 0.5 Mg Tab 0.5 MG PO Q6H Y for ANXIETY, #15 TAB 0 Refills Prov: Jerry Block MD 09/06/17 Disposition: DISCHARGE HOME Condition: Stable Jerry Block MD Sep 06, 2017 02:54
[2017-09-06] MEDS ORDERED: SODIUM CHLOR 0.9% 1000 ML INJ 1,000 ML IV SCH (02:55)
[2017-09-06 03:00] VITALS: BP 152/85; PULSE 18; PULSE 87; RESP 16; TEMP 98.2; O2SAT 100
[2017-09-06] MEDS ORDERED: ALUMINUM/MAGNESIUM/SIMETH 30 ML CUP PO ONE (03:00)
[2017-09-06] MEDS ORDERED: PANTOPRAZOLE SODIUM 40 MG VIAL IVP ONE (03:00)
[2017-09-06] MEDS ORDERED: LORazepam 2 MG/ML VIAL IV PUSH ONE (03:00)
[2017-09-06] MEDS ORDERED: LIDOCAINE VISCOUS 2% SOLN 15 ML UDC PO ONE (03:00)
[2017-09-06] MEDS ORDERED: POTASSIUM CHLORIDE 20 MEQ CONTROLLED RELEASE TAB PO ONE (03:00)
[2017-09-06] MEDS ORDERED: ONDANSETRON HCL 4 MG/2 ML VIAL IVP ONE (03:00)
[2017-09-06] MEDS ORDERED: SODIUM CHLORIDE 0.9% FLUSH 10 ML FLUSH IV FLUSH PRN (03:00)
[2017-09-06] MEDS ORDERED: FAMOTIDINE 20 MG/2 ML VIAL IV PUSH ONE (03:00)
[2017-09-06] MEDS ORDERED: MORPHINE SULFATE 2 MG/ML INJ IV PUSH ONE (03:45)
[2017-09-06] MEDS ORDERED: ONDANSETRON HCL 4 MG/2 ML VIAL IV ONE (03:45)
[2017-09-06] MEDS ORDERED: PROC10TA PO (03:59)
[2017-09-06] MEDS ORDERED: ALPR.5 PO (03:59)
[2017-09-06 05:22] VITALS: BP 138/85; TEMP 98.2
== END 2017-09-06 05:25 | disposition home or self-care (01) ==
LOC: PHED 00:14
DX: K29.70 Gastritis, unspecified, without bleeding (principal); F41.9 Anxiety disorder, unspecified; E86.0 Dehydration; I10 Essential (primary) hypertension; F32.9 Major depressive disorder, single episode, unspecified; Z98.84 Bariatric surgery status; Z87.891 Personal history of nicotine dependence; Z79.899 Other long term (current) drug therapy
CPT/HCPCS: 80053; 81001; 83690; 85007; 85027; 96361; 96374; 96375; 96376; 99284; C9113; J2060; J2270; J2405; J7030

== ENCOUNTER 2017-10-02 07:05 | Emergency (ER) | payer OTHER ==
[~2017-10-02] VITALS: Ht 160 cm; Wt 69.6 kg
[~2017-10-02 07:05] MED LIST changes: +ALPR.5 PO; +PROC10TA PO
[2017-10-02 07:06] VITALS: BP 188/103; PULSE 105; RESP 16; TEMP 98.4; O2SAT 100
[2017-10-02] MEDS ORDERED: BUSP15TA PO (07:17)
--- NOTE | 2017-10-02 07:22 | PD ---
HPI Chief Complaint: Anxiety Time Seen by Provider: 07:22 Travel History International Travel<30 days: No Contact w/Intl Traveler<30days: No Traveled to known affect area: No History of Present Illness HPI 42-year-old female came to the emergency room for panic attack. Patient says she has history of panic attack and gets them every now and then. Her last episode was about a month ago. This time is been going on for 2 days where she has been feeling some palpitations, nausea, vomiting and heartburn. Patient multiple times and tried to calm herself down. She takes Wellbutrin and all this did not help. This is when she decided to come to the emergency room. No history of chest pain per se. Once again these symptoms are similar to her past panic attack as per the patient. Vital signs were stable. She does look in moderate distress. Patient was hypertensive and slightly tachycardic in triage. [facility] Past Medical History Narrative Medical List of her past medical, surgical, social and family history is reviewed from the nursing note. Hx Anticoagulant Therapy: No Anxiety: Yes Depression: Yes Cancer: No Cardiovascular Problems: Yes (HTN) Diabetes: No Diminished Hearing: No Gastrointestinal Disorders: Yes (GASTRITIS) GERD: Yes Glaucoma: No Hepatitis: No Hiatal Hernia: No Hypertension: Yes Musculoskeletal: Yes (SCIATICA) Respiratory: No Immunizations Current: Yes Thyroid Disease: No Influenza Vaccination: No PNEUMOCCOCAL Vaccine (Year): 2 ?: Not : 2 Para: 2 Tubal Ligation: Yes Past Surgical History Abdominal Surgery: Yes (GASTRIC BYPASS 2009) Cardiac Surgery: No Endocrine Surgery: No Gynecologic Surgery: Yes Neurologic Surgery: No Pacemaker: No Thoracic Surgery: No Tonsillectomy: Yes Other Surgery: Yes (CARPAL TUNNEL REPAIR, bilateral) Social History Alcohol Use: Yes Tobacco Use: No (QUIT 2005) Substance Use: No Allergies-Medications (Allergen,Severity, Reaction): Coded Allergies: No Known Allergies (Verified Adverse Reaction, Unknown, 10/02/17) Comments No known drug allergies. Reported Meds & Prescriptions Reported Meds & Active Scripts Active Omeprazole 40 Mg Cap 40 Mg PO DAILY Reported Buspirone (Buspirone HCl) 15 Mg Tab 15 Mg PO BID Lisinopril-Hctz 20-12.5 Mg Tab 1 Tab PO DAILY Narrative Medication List of her home medications reviewed from the nursing note. Review of Systems Except as stated in HPI: all other systems reviewed are Neg Psychiatric: Positive: Anxiety Physical Exam Narrative GENERAL: Awake, alert, moderate distress, anxious SKIN: Focused skin assessment warm/dry. HEAD: Atraumatic. Normocephalic. EYES: Pupils equal and round. No scleral icterus. No injection or drainage. ENT: No nasal bleeding or discharge. Mucous membranes pink and moist. NECK: Trachea midline. No JVD. CARDIOVASCULAR: Regular rate and rhythm. No murmur appreciated. RESPIRATORY: No accessory muscle use. Clear to auscultation. Breath sounds equal bilaterally. GASTROINTESTINAL: Abdomen soft, non-tender, nondistended. Hepatic and splenic margins not palpable. MUSCULOSKELETAL: No obvious deformities. No clubbing. No cyanosis. No edema. NEUROLOGICAL: Awake and alert. No obvious cranial nerve deficits. Motor grossly within normal limits. Normal speech. PSYCHIATRIC: Appropriate mood and affect; insight and judgment normal. Data Data Last Documented VS Orders Orders Basic Metabolic Panel (Bmp) (10/02/17 07:28) Beta Hcg (Quant/Titer) (10/02/17 07:28) Complete Blood Count With Diff (10/02/17 07:28) Lipase (10/02/17 07:28) Urinalysis - C+S If Indicated (10/02/17 07:28) Iv Access Insert/Monitor (10/02/17 07:28) Ecg Monitoring (10/02/17 07:28) Oximetry (10/02/17 07:28) Ondansetron Inj (Zofran Inj) (10/02/17 07:30) Sodium Chlor 0.9% 1000 Ml Inj (Ns 1000 M (10/02/17 07:28) Sodium Chloride 0.9% Flush (Ns Flush) (10/02/17 07:30) Electrocardiogram (10/02/17 07:28) Alprazolam (Xanax) (10/02/17 07:30) Troponin I (10/02/17 07:28) Al-Mag Hy-Si 40-40-4 Mg/Ml Liq (Mag-Al P (10/02/17 07:30) Drug Screen, Random Urine (10/02/17 07:30) Urine Culture (10/02/17 07:40) Pantoprazole Inj (Protonix Inj) (10/02/17 08:30) Ketorolac Inj (Toradol Inj) (10/02/17 08:30) Ed Discharge Order (10/02/17 09:51) Labs Laboratory Tests Test 10/02/17 07:40 10/02/17 07:45 Urine Collection Type CLEAN CATCH Urine Color YELLOW Urine Turbidity CLEAR Urine pH 5.5 Urine Specific [place] GREATER/EQUAL 1.030 Urine Protein TRACE mg/dL Urine Glucose (UA) NEG mg/dL Urine Ketones 15 mg/dL Urine Occult Blood NEG Urine Nitrite NEG Urine Bilirubin NEG Urine Urobilinogen 1.0 MG/DL Urine Leukocyte Esterase NEG Urine WBC 0-2 /hpf Urine Squamous Epithelial Cells > 8 /hpf Urine Amorphous Sediment FEW Urine Bacteria MOD /hpf Microscopic Urinalysis Comment CULTURE INDICATED Urine Collection Time 0740 Urine Opiates Screen NEG Urine Barbiturates Screen NEG Urine Amphetamines Screen NEG Urine Benzodiazepines Screen NEG Urine Cocaine Screen NEG Urine Cannabinoids Screen NEG White Blood Count 6.0 TH/MM3 Red Blood Count 4.72 MIL/MM3 Hemoglobin 10.0 GM/DL Hematocrit 32.5 % Mean Corpuscular Volume 68.9 FL Mean Corpuscular Hemoglobin 21.1 PG Mean Corpuscular Hemoglobin Concent 30.6 % Red Cell Distribution Width 21.0 % Platelet Count 410 TH/MM3 Mean Platelet Volume 6.7 FL CBC Comment AUTO DIFF Differential Total Cells Counted 100 Neutrophils % (Manual) 82 % Lymphocytes % 12 % Monocytes % 5 % Eosinophils % 1 % Neutrophils # (Manual) 4.9 TH/MM3 Differential Comment FINAL DIFF MANUAL Red Cell Morphology Comment NORMAL Blood Urea Nitrogen 19 MG/DL Creatinine 0.88 MG/DL Random Glucose 119 MG/DL Calcium Level 9.4 MG/DL Sodium Level 132 MEQ/L Potassium Level 3.5 MEQ/L Chloride Level 98 MEQ/L Carbon Dioxide Level 25.5 MEQ/L Anion Gap 9 MEQ/L Estimat Glomerular Filtration Rate 70 ML/MIN Troponin I LESS THAN 0.02 NG/ML Lipase 232 U/L Human Chorionic Gonadotropin, Quant LESS THAN 1 MIU/ML MDM Medical Decision Making Medical Screen Exam Complete: Yes Emergency Medical Condition: Yes Medical Record Reviewed: Yes Interpretation(s) Twelve-lead EKG was reviewed by me. Normal sinus rhythm, normal axis, nonspecific ST-T wave changes. Heart rate of 85 bpm. Differential Diagnosis Anxiety, panic attack, acute gastritis Narrative Course 8:20 AM blood test results of back and within acceptable limits. Patient has slight anemia. She was given IV fluid bolus, Xanax and Maalox. I gave her an antinausea medication as well. Given her normal-looking EKG I'm comfortable ruling out ACS based on this. I'll go and reassess her. If she feels better patient will be discharged and follow up with the primary care. 8:23 AM patient says that she still has the abdominal pain and heartburn. I will give her some Protonix IV and Toradol. Patient just told me that she had an endoscopy and colonoscopy 6 months ago and they were all within normal limit. 9:49 AM I just reassessed the patient after the medications and she was sleeping and looked comfortable. Upon waking her up she said she feels little better although she still has some burning. I'm going to discharge her home with a prescription for omeprazole. I've asked her to follow up with her primary care and GI specialist. Procedures EKG Prior to Arrival: No Diagnosis Primary Impression: Acute gastritis Qualified Codes: K29.00 - Acute gastritis without bleeding Referrals: Primary Care Physician Additional Instructions: You should follow-up with your primary care and your GI specialist. Take the medication as per the prescription direction. Return to the ER if condition worsens or any other new concerns. Do not drink alcohol or eat or drink any acidic food. Do not eat any spicy or fried food either. [place] diet would be ideal to symptoms subside. Med/Other Pt SpecificInfo: Prescription(s) given Scripts Omeprazole (Omeprazole) 40 Mg Cap 40 MG PO DAILY, #30 CAP 0 Refills Prov: Davey Owens MD 10/02/17 Disposition: 01 DISCHARGE HOME Condition: Stable Davey Owens MD Oct 02, 2017 07:22
[2017-10-02] MEDS ORDERED: SODIUM CHLOR 0.9% 1000 ML INJ 1,000 ML IV SCH (07:28)
[2017-10-02] MEDS ORDERED: ALPRAZolam 0.5 MG TAB PO ONE (07:30)
[2017-10-02] MEDS ORDERED: ONDANSETRON HCL 4 MG/2 ML VIAL IVP ONE (07:30)
[2017-10-02] MEDS ORDERED: ALUMINUM/MAGNESIUM/SIMETH 30 ML CUP PO ONE (07:30)
[2017-10-02 07:40] VITALS: O2SAT 97
[2017-10-02] MEDS: SODIUM CHLORIDE 0.9% FLUSH 10 ML FLUSH IV FLUSH PRN ×2 (07:46→08:52)
[2017-10-02 07:48] VITALS: BP 153/95; PULSE 88; RESP 18; O2SAT 99
[2017-10-02 07:52] LABS: BLOOD, URINE NEG (NEG); GLUCOSE,URINE NEG (NEG); KETONE, URINE 15 mg/dL (NEG); NITRITE,URINE NEG (NEG); PH, URINE 5.5 (5.0-8.5); URINE COLOR YELLOW (YELLW/STRAW); URINE LEUKOCYTE ESTERASE NEG (NEG)
[2017-10-02 07:58] LABS: HEMATOCRIT 32.5 % (35.0-46.0); MEAN CELL VOLUME 68.9 FL (80.0-100.0); MEAN CORPUSCULAR HEMOGLOBIN 21.1 PG (27.0-34.0); MEAN CORPUSCULAR HGB CONC 30.6 % (32.0-36.0); MEAN PLATELET VOLUME 6.7 FL (7.0-11.0); PLATELET COUNT 410 TH/MM3 (150-450); RED BLOOD COUNT 4.72 MIL/MM3 (4.00-5.30)
[2017-10-02 07:59] LABS: BILIRUBIN, URINE NEG (NEG)
[2017-10-02 08:01] LABS: AMORPHOUS SEDIMENT, URINE FEW; BACTERIA, URINE MOD /hpf; SQUAMOUS EPITHELIAL CELL URINE > 8 /hpf (0-5); WBC, URINE 0-2 /hpf (0-5)
[2017-10-02 08:02] LABS: CHLORIDE 98 MEQ/L (98-107); SODIUM (NA) 132 MEQ/L (136-145)
[2017-10-02 08:05] LABS: BICARBONATE 25.5 MEQ/L (21.0-32.0); BLOOD UREA NITROGEN 19 MG/DL (7-18); CALCIUM 9.4 MG/DL (8.5-10.1); GLUCOSE,RANDOM 119 MG/DL (74-106)
[2017-10-02 08:08] LABS: CREATININE 0.88 MG/DL (0.50-1.00); GLOMERULAR FILTRATION RATE 70 ML/MIN (>89)
[2017-10-02 08:14] LABS: TROPONIN I LESS THAN 0.02 NG/ML (0.02-0.05)
[2017-10-02 08:20] LABS: LYMPHOCYTES 12 % (9-44); MONOCYTES 5 % (0-8); NEUTROPHIL # MANUAL DIFF 4.9 TH/MM3 (1.8-7.7); POLYS (SEG NEUTROPHILS) 82 % (16-70)
[2017-10-02] MEDS ORDERED: PANTOPRAZOLE SODIUM 40 MG VIAL IV PUSH ONE (08:30)
[2017-10-02] MEDS ORDERED: KETOROLAC TROMETHAMINE 30 MG/ML (IVP) VIAL IV PUSH ONE (08:30)
[2017-10-02 08:55] VITALS: BP 173/109; PULSE 77; RESP 20; O2SAT 98
[2017-10-02 09:26] VITALS: BP 174/97; PULSE 90; RESP 18; O2SAT 97
[2017-10-02] MEDS ORDERED: OMEP40CA2 PO (09:51)
[2017-10-02 09:59] VITALS: BP 149/89
--- NOTE | 2017-10-03 00:10 | EKG ---
Date Performed: 10/02/2017 Time Performed: 07:41:03 PTAGE: 42 years EKG: Sinus rhythm WITH SINUS ARRHYTHMIA NORMAL ECG PREVIOUS TRACING : 11/30/2016 00.19 DOCTOR: Michael Higuera Interpretating Date/Time 10/03/2017 00:04:19
== END 2017-10-02 10:08 | disposition home or self-care (01) ==
LOC: PHED 07:05
DX: K29.00 Acute gastritis without bleeding (principal); B96.89 Other specified bacterial agents as the cause of diseases classified elsewhere; D64.9 Anemia, unspecified; R00.0 Tachycardia, unspecified; F41.0 Panic disorder [episodic paroxysmal anxiety]; I10 Essential (primary) hypertension; K21.9 Gastro-esophageal reflux disease without esophagitis; Z87.891 Personal history of nicotine dependence; Z98.84 Bariatric surgery status
CPT/HCPCS: 80048; 80307; 81001; 83690; 84484; 84702; 85007; 85027; 87086; 93005; 96361; 96374; 96375; 99284; C9113; J1885; J2405; J7030